=== PATIENT | female | born 1950 | race Caucasian/White ===

== ENCOUNTER 2025-01-13 09:40 | Emergency (ER) | payer OTHER, SELFPAY ==
[2025-01-13 09:44] VITALS: BP 154/101
--- NOTE | 2025-01-13 10:13 | ED.GENMED ---
History of Present Illness
General
Chief Complaint: Back Pain
Source: patient
Exam Limitations: none
Time Seen by Provider: 01/13/25 09:57
History of Present Illness
History of Present Illness:
74-year-old female with 10 days of right buttock pain. Some shooting pain down the right leg. No fever or chills. No bowel or bladder issues. No incontinence. Patient currently on meloxicam. Has been seen by her primary physician and
orthopedics. X-rays were done.
Past History
Past History
ED Past Medical History: HTN, Hypercholesterolemia, NIDDM and Other (Hiatal hernia, sleep apnea)
ED Past Surgical History: Gynecological
Social History
Tobacco: Smoker
Alcohol: Occasional
Drug: None
Living: alone
Review of Systems
Review of Systems
All Other Systems: Not applicable
Constitutional: Denies fever or chills
Phy Exam
Physical Exam
Physical Exam:
GENERAL: Alert and oriented in no apparent distress
EYE: Orbits normal.
NECK: Supple
CARDIAC: Regular rate and rhythm without any obvious murmurs.
LUNGS: Clear breath sounds,normal
NEUROLOGICAL: Alert and oriented , grossly non-focal
SKIN: Warm and dry, no rash or lesion, no discoloration, skin intact.
MUSCULOSKELETAL: No edema,no deformity.Good color. Mild tenderness to the right buttock. No erythema or warmth. No swelling. Negative straight leg raising. Able to get up and ambulate well. Able to walk on toes and heels. Plantar dorsiflexion
of the foot within normal limits. No vascular issues
PSYCH: Normal and appropriate interaction.
Course
Orders/Labs/Results
Orders:
Orders
01/13/25 10:12
CT Pelvis With Iv Contrast Urgent
Comment:
Reason For Exam: Right buttock pain
IV Insert/Care/Rem.- Treatment PRN
0.9% Sodium Chloride 500 ml [Nss] 500 ml IV BOLUS
01/13/25 10:27
Basic Metabolic Panel Urgent
CRP [C-Reactive Protein] Urgent
Complete Blood Count/With Diff Urgent
Erythrocyte Sed Rate Urgent
01/13/25 13:34
Ketorolac [Toradol] 15 mg IV NOW STA
Abnormal Lab Results
01/13/25
10:27
RBC 4.00 L 10^6/uL
(4.20-5.40)
Hgb 11.9 L g/dL
(12.0-16.0)
Hct 36.4 L %
(37.0-47.0)
MCHC 32.7 L g/dL
(33.0-37.0)
Absolute Lymphs (auto) 1.1 L 10^3/uL
(1.2-3.4)
Lymphocytes % 15.9 L %
(20.5-51.1)
Chloride 109 H mmol/L
(98-107)
Glucose 117 H mg/dl
(70-99)
01/13/25 10:27
01/13/25 10:27
Vital Signs
Initial and Last Documented VS:
Initial Vital Signs
Temp Pulse Resp BP Pulse Ox
98.4 F 66 18 154/101 98
01/13/25 09:44 01/13/25 09:44 01/13/25 09:44 01/13/25 09:44 01/13/25 09:44
Last Documented Vital Signs
Temp Pulse Resp BP Pulse Ox
98.4 F 84 18 154/78 98
01/13/25 09:44 01/13/25 13:55 01/13/25 09:44 01/13/25 13:55 01/13/25 10:16
MDM/Problems Addressed
Differential Diagnosis Includes:
Right buttock pain with shooting pain down the right leg. Would be most consistent with sciatica although some symptoms are atypical with no straight leg raising discomfort and no positional component. She is ambulating well. She has no acute
neurologic issues. Highly doubt infectious issue. Will get a CT of her pelvis area to rule out any deep abscess or mass causing this issue.
*Radiology
Radiology exam reviewed: radiology read reviewed (Probable chronic avulsion right ischial tuberosity right hamstring tendinosis.)
*Pulse Oximetry
SaO2: 98
Oxygen Mode of Delivery: Room air
Patient hypoxic: no
*Critical Care Note
Total Time (30-74mins, 75-104mins- exclusive of procedures): Not Applicable
Update Note
Update Note:
Patient currently sitting in the chair in no distress but states she feels moderately uncomfortable with pain. Pain does shoot down the leg. This could be mildly atypical sciatica. This could be a tendinitis. No serious etiology found. No
vascular issue no infectious issue. Discussed pain management options. Patient will stick to Tylenol and her NSAID.
ED Attending Note
-
Portions of this chart may have been created with voice recognition software.� Occasional wrong word or��sound alike� substitutions may have occurred due to the inherent limitations of voice recognition software.
Discharge Plan
Departure
Patient Disposition: Home (Routine Discharge)
Date of Disposition: 01/13/25
Time of Disposition: 13:33
Patient with high blood pressure during this ER visit?: Yes
Discharge Problem:
Sciatica versus tendinitis
Instructions: Low Back Pain (DC), Radiculopathy (DC), Tendinopathy (DC)
Prescriptions:
No Action
valsartan [Diovan] 160 MG capsule
160 mg PO DAILY
metformin 500 MG tablet
500 mg PO DAILY
indapamide 2.5 MG tablet
2.5 mg PO DAILY
nizatidine [Axid] 150 MG capsule
150 mg PO HS
aspirin 81 MG tablet,delayed release (DR/EC)
81 mg PO DAILY
rosuvastatin 5 MG tablet
5 mg PO QPM
naproxen sodium [Aleve] 220 MG tablet
220 mg PO PRN PRN (Reason: pain)
escitalopram oxalate 10 MG tablet
10 mg PO DAILY
ketoconazole 15 GM cream
30 gm topical Daily Qty: 1 0RF
Referrals:
Tello Barrera DO [Family Provider, Internal Medicine] - Follow up in 2-3 days
Activity Restrictions/Additional Instructions:
I recommend follow-up closely with Michelle.
Interventions
Interventions:
*Risk Screen - Suicide Last Done: 01/13/25 09:44
*General Assessment Last Done: 01/13/25 09:44
*Neglect/Abuse Screening Last Done: 01/13/25 09:44
*ED- Fall Risk Assessment Last Done: 01/13/25 10:05
*ED COVID-19 Vaccine History Last Done: 01/13/25 10:05
*Nursing Disposition Last Done: 01/13/25 13:55
ED-Musculoskeletal Assessment Last Done: 01/13/25 10:04
Discharge Date and Time
Discharge Date/Time: 01/13/25 13:57
Print Language: TURKISH
[2025-01-13] MEDS: NSS 500 IV (10:32)
[2025-01-13 10:41] LABS: Hematocrit 36.4 % (37.0-47.0); Hemoglobin 11.9 g/dL (12.0-16.0); Mean Corp Hgb Conc. 32.7 g/dL (33.0-37.0); Mean Corpuscular Volume 91.0 fL (81.0-99.0); Nucleated Red Blood Cells % 0 %; Platelet Count 199 10^3/uL (130-400); Red Cell Dist. Width 13.2 % (11.5-14.5)
[2025-01-13 11:14] VITALS: BP 178/70
[2025-01-13 11:21] LABS: C-Reactive Protein < 5.00 mg/L (0.0-10.00)
[2025-01-13 11:28] LABS: Blood Urea Nitrogen 12 mg/dl (7-17); Calcium 9.3 mg/dl (8.4-10.2); Carbon Dioxide 23 mmol/L (22-30); Chloride 109 mmol/L (98-107); Glucose 117 mg/dl (70-99); Sodium 140 mmol/L (135-145); eGFR > 60.00
[2025-01-13] MEDS: TORADOL 15 MG IV (13:45)
[2025-01-13 13:55] VITALS: BP 154/78
== END 2025-01-13 13:57 | disposition home or self-care (01) ==
LOC: EMR 09:40
PROVIDERS: EMERGENCY PHYSICIAN Emergency Medicine; FAMILY PHYSICIAN Internal Medicine
DX: M54.31 Sciatica, right side (principal); E11.9 Type 2 diabetes mellitus without complications; I10 Essential (primary) hypertension; E78.00 Pure hypercholesterolemia, unspecified; G47.30 Sleep apnea, unspecified; K44.9 Diaphragmatic hernia without obstruction or gangrene; F17.200 Nicotine dependence, unspecified, uncomplicated; Z79.84 Long term (current) use of oral hypoglycemic drugs; Z79.82 Long term (current) use of aspirin
CPT/HCPCS: 99284; 96374; 96361; 72193; 80048; 85025; 85652; 86140; Q9967

== ENCOUNTER 2025-01-16 09:52 | Emergency (ER) | payer OTHER, SELFPAY ==
[2025-01-16 09:58] VITALS: BP 192/98
--- NOTE | 2025-01-16 12:23 | ED.MUSCINJ ---
HPI-Injury
General
Chief Complaint: Musculo-Skeletal Complaint
Source: patient
Exam Limitations: none
Time Seen by Provider: 01/16/25 12:22
Nursing documentation reviewed up to this point in time: agreed with
History of Present Illness-Injury
Initial Injury comments:
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 Seen by Michelle 10 days ago
and prescribed Meloxicam and Tylenol which is giving no relief, seen by PCP and , seen here 3 days ago for same.
Laying flat relieves the pain, getting out of bed she is in tears due to the pain. She has been using her walker and cane. Denies saddle anesthesia, denies loss of bowel or bladder control. She states she is have trouble ambulating due to the pain
down her right leg.
Past History
Past History
ED Past Medical History: HTN, Hypercholesterolemia, NIDDM and Other (Hiatal hernia, sleep apnea)
ED Past Surgical History: Gynecological
Social History
Tobacco: Smoker
Alcohol: Occasional
Drug: None
Living: alone
Review of Systems
Review of Systems
Allergies reviewed?: Yes
All Other Systems: ROS reviewed and negative except as documented in HPI and ROS
Phy Exam
Physical Exam
Physical Exam:
GENERAL: No acute distress. A&Ox3.
CONSTITUTIONAL: Afebrile.
RESPIRATORY: Regular respirations, nonlabored, lungs clear.
CARDIOVASCULAR: Regular rate and rhythm, no murmurs, no rubs.
GI: Soft, nontender, normal BS
MUSCULOSKELETAL: Moves with ease. Well perfused.
SKIN: Warm, dry, pink
PSYCH: Normal mood and affect. Well kept, interactive and appropriate
NEUROLOGIC: Awake, alert and oriented. Strength 5/5 bilateral lower extremities. Equal patellar reflexes. Dorsi and plantarflexion intact. Sensation to touch equal. No focal neurological deficits
Injury Course
Orders/Labs/Results
Orders:
Orders
01/16/25 12:40
Bedside Glucose- Treatment ONCE
01/16/25 12:41
Dexamethasone [Decadron] 10 mg PO NOW STA
Tramadol HCl [Ultram] 50 mg PO NOW STA
Abnormal Lab Results
01/16/25
12:40
POC Glucose 141 H mg/dl
(70-99)
MDM/Problems Addressed
Differential Diagnosis Includes:
Sciatica, lumbar disc herniation
MDM/Problems Addressed:
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 Seen by Michelle 10 days ago
and prescribed Meloxicam and Tylenol which is giving no relief, seen by PCP and , seen here 3 days ago for same.
Laying flat relieves the pain, getting out of bed she is in tears due to the pain. She has been using her walker and cane. Denies saddle anesthesia, denies loss of bowel or bladder control. She states she is have trouble ambulating due to the pain
down her right leg.
Afebrile. NAD
No infectious symptoms, strength equal bilateral LE's, ambulating independently with cane with limp.
Patient had x-rays at [facility] so no need to repeat, patient had pelvic CT when here the other day so no indication for further imaging
No neuro deficits
Pt is NIDDM, FSBS 140
Plan: will give Decadron one dose here, Tramadol here. Son w pt and will be with her all day. If she responds well with Tramadol, she will continue daily Meloxicam, Tylenol and Tramadol as needed. Rx for #6 Tramadol sent to pharmacy to get her
through the holiday weekend.
Follow up with Michelle or PCP, prob needs MRI and/or P/T.
Pt very pleasant and appreciative of the care.
*Pulse Oximetry
SaO2: 97
Oxygen Mode of Delivery: Room air
Patient hypoxic: not evaluated
*Critical Care Note
Total Time (30-74mins, 75-104mins- exclusive of procedures): Not Applicable
Patient Management
Social determinants of health affecting care: Strong social support
ED Attending Note
-
Portions of this chart may have been created with voice recognition software.� Occasional wrong word or��sound alike� substitutions may have occurred due to the inherent limitations of voice recognition software.
Discharge Plan
Departure
Patient Disposition: Home (Routine Discharge)
Date of Disposition: 01/16/25
Time of Disposition: 12:49
Patient with high blood pressure during this ER visit?: No
Condition: Fair
Discharge Problem:
Right sided sciatica
Instructions: Tramadol, Sciatica - ED (DC)
Prescriptions:
New
tramadol 50 mg tablet
50 mg PO BID PRN (Reason: Pain) Qty: 6 0RF
No Action
valsartan [Diovan] 160 MG capsule
160 mg PO DAILY
metformin 500 MG tablet
500 mg PO DAILY
indapamide 2.5 MG tablet
2.5 mg PO DAILY
nizatidine [Axid] 150 MG capsule
150 mg PO HS
aspirin 81 MG tablet,delayed release (DR/EC)
81 mg PO DAILY
rosuvastatin 5 MG tablet
5 mg PO QPM
naproxen sodium [Aleve] 220 MG tablet
220 mg PO PRN PRN (Reason: pain)
escitalopram oxalate 10 MG tablet
10 mg PO DAILY
ketoconazole 15 GM cream
30 gm topical Daily Qty: 1 0RF
Referrals:
Tello Barrera DO [Family Provider, Internal Medicine] - Call in 1-3 days for appt
Activity Restrictions/Additional Instructions:
As we discussed, alternate cold compresses with heating pad and stick with whichever feels better.
You may continue to take your meloxicam as well as Tylenol as needed.
I sent a prescription for tramadol to your pharmacy to take if the meloxicam and Tylenol are not helping.
You were given 1 dose of steroid, Decadron here today. It is a long-lasting steroid that should last for 3 days. It may not take effect for 12 to 24 hours
Call your family doctor on Saturday after the holiday and inform him of your persistent pain and that we recommend either physical therapy, MRI or both
Return here immediately for fever, loss of control of your bowel or bladder, feeling worse in any way.
Interventions
Interventions:
*Risk Screen - Suicide Last Done: 01/16/25 09:58
*General Assessment Last Done: 01/16/25 09:58
*ED- Fall Risk Assessment Last Done: 01/16/25 09:58
*ED COVID-19 Vaccine History Last Done: 01/16/25 09:58
*Nursing Disposition Last Done: 01/16/25 13:11
ED-Musculoskeletal Assessment Last Done: 01/16/25 12:00
Discharge Date and Time
Discharge Date/Time: 01/16/25 13:12
Print Language: VIET[place]ESE
[2025-01-16 12:41] LABS: Glucose - Point of Care 141 mg/dl (70-99)
[2025-01-16] MEDS: ULTRAM 50 MG PO (12:55)
[2025-01-16] MEDS: DECADRON 10 MG PO (12:56)
[2025-01-16 13:10] VITALS: BP 169/85
== END 2025-01-16 13:12 | disposition home or self-care (01) ==
LOC: EMR 09:52
PROVIDERS: EMERGENCY PHYSICIAN Emergency Medicine; FAMILY PHYSICIAN Internal Medicine
DX: M54.31 Sciatica, right side (principal); R20.0 Anesthesia of skin; E11.9 Type 2 diabetes mellitus without complications; E78.00 Pure hypercholesterolemia, unspecified; F17.200 Nicotine dependence, unspecified, uncomplicated; G47.30 Sleep apnea, unspecified; I10 Essential (primary) hypertension; Z79.84 Long term (current) use of oral hypoglycemic drugs
CPT/HCPCS: 99282; 82962